=== PATIENT | female | born 1995 | race Caucasian/White ===

== ENCOUNTER 2020-09-08 16:40 | Emergency (ER) | payer MEDICAID ==
[~2020-09-08] VITALS: Ht 167.6 cm; Wt 63.6 kg
[~2020-09-08 16:40] MED LIST: CYCL-1 PO; ONDA4TAB6 PO
[2020-09-08 16:49] VITALS: BP 126/79
[2020-09-08] MEDS ORDERED: IBUP-1984 PO (18:03)
[2020-09-08] MEDS ORDERED: AMOX-117 PO (18:03)
[2020-09-08] MEDS ORDERED: HYDROcodone/acetaminophen 10/325mg tab PO ONE (18:30)
== END 2020-09-08 18:32 | disposition home or self-care (01) ==
LOC: ER 16:40
DX: K04.7 Periapical abscess without sinus (principal); G43.909 Migraine, unspecified, not intractable, without status migrainosus; K21.9 Gastro-esophageal reflux disease without esophagitis; F12.90 Cannabis use, unspecified, uncomplicated; Z72.89 Other problems related to lifestyle; Z88.5 Allergy status to narcotic agent; Z79.2 Long term (current) use of antibiotics; Z79.899 Other long term (current) drug therapy
CPT/HCPCS: 99283

== ENCOUNTER 2020-10-23 11:05 | Emergency (ER) | payer MEDICAID ==
[~2020-10-23] VITALS: Ht 167.6 cm; Wt 64.0 kg
[2020-10-23 11:17] VITALS: BP 115/61
[2020-10-23 11:43] LABS: BASOPHILS % (AUTO) 0.5 % (0-1); EOSINOPHILS % (AUTO) 0.3 % (0-6); HEMATOCRIT 41.8 % (35.0-45.0); HEMOGLOBIN 14.2 g/dl (12.0-16.0); LYMPHOCYTES # (AUTO) 1.3 X10'3 (1.1-4.8); LYMPHOCYTES % (AUTO) 14.7 % (21-51); MEAN CORPUSCULAR HEMOGLOBIN 31.1 PG (27.0-31.0); MEAN CORPUSCULAR VOLUME 91.3 FL (78-98); MEAN PLATELET VOLUME 7.7 FL (7.4-10.4); MONOCYTES # (AUTO) 0.5 X10'3 (0-0.9); MONOCYTES % (AUTO) 5.4 % (2-12); NEUTROPHILS % (AUTO) 79.1 % (42-75); PLATELET COUNT 267 X10'3 (140-440); RED BLOOD COUNT 4.57 X10'6 (4.20-5.60); RED CELL DISTRIBUTION WIDTH 12.7 % (11.5-14.5); WHITE BLOOD COUNT 8.9 X10'3 (4.5-11.0)
[2020-10-23 12:01] LABS: URINE HCG NEGATIVE (NEG)
[2020-10-23 12:02] LABS: ALANINE AMINOTRANSFERASE 25 U/L (12-78); ALBUMIN 4.1 G/DL (3.4-5.0); ALBUMIN/GLOBULIN RATIO 1.2 (1.1-1.5); ALKALINE PHOSPHATASE 58 IU/L (46-116); ANION GAP 5 (8-16); ASPARTATE AMINO TRANSFERASE 13 U/L (10-37); BILIRUBIN,TOTAL 0.7 MG/DL (0.1-1.0); BLOOD UREA NITROGEN 14 MG/DL (7-18); BUN/CREATININE RATIO 16.3 (6.6-38.0); CALCIUM 8.7 MG/DL (8.5-10.1); CHLORIDE 103 MMOL/L (99-107); CREATININE 0.86 MG/DL (0.40-0.90); GLUCOSE 129 MG/DL (70-104); POTASSIUM 3.8 MMOL/L (3.5-5.1); SODIUM 137 MMOL/L (135-145); TOTAL PROTEIN 7.4 G/DL (6.4-8.2); eGFR 80 ML/MIN
[2020-10-23 12:07] LABS: COLOR,URINE YELLOW (Yellow); GLUCOSE, URINE NEGATIVE (Neg); KETONES,URINE NEGATIVE (Neg); LEUKOCYTE ESTERASE ,URINE NEGATIVE (Neg); NITRITES, URINE NEGATIVE (Neg); OCCULT BLOOD,URINE NEGATIVE (Neg); PROTEIN,URINE NEGATIVE (Neg); UROBILINOGEN,URINE 0.2 E.U/dL (0.2-1.0)
[2020-10-23 12:19] LABS: UA COLLECTION TYPE CLN CATCH MIDSTREAM
[2020-10-23 12:20] LABS: CLARITY,URINE CLEAR (Clear)
== END 2020-10-23 12:27 | disposition home or self-care (01) ==
LOC: ER 11:05
DX: S50.12XA Contusion of left forearm, initial encounter (principal); S50.11XA Contusion of right forearm, initial encounter; S80.12XA Contusion of left lower leg, initial encounter; S80.11XA Contusion of right lower leg, initial encounter; G43.909 Migraine, unspecified, not intractable, without status migrainosus; K21.9 Gastro-esophageal reflux disease without esophagitis; F12.90 Cannabis use, unspecified, uncomplicated; Z72.89 Other problems related to lifestyle; Z88.5 Allergy status to narcotic agent; Z79.899 Other long term (current) drug therapy; X58.XXXA Exposure to other specified factors, initial encounter; Y93.89 Activity, other specified; Y92.89 Other specified places as the place of occurrence of the external cause; Y99.8 Other external cause status
CPT/HCPCS: 36415; 80053; 81003; 81025; 85025; 85610; 99283

== ENCOUNTER 2023-05-08 20:21 | Emergency (ER) | payer MEDICAID ==
[~2023-05-08] VITALS: Ht 167.6 cm; Wt 63.6 kg
[2023-05-08 21:08] LABS: BASOPHILS # (AUTO) 0.1 X10'3 (0-0.2); BASOPHILS % (AUTO) 0.6 % (0-1); EOSINOPHILS # (AUTO) 0.1 X10'3 (0-0.9); EOSINOPHILS % (AUTO) 0.9 % (0-6); HEMATOCRIT 39.7 % (35.0-45.0); HEMOGLOBIN 13.1 g/dl (12.0-16.0); LYMPHOCYTES # (AUTO) 1.2 X10'3 (1.1-4.8); LYMPHOCYTES % (AUTO) 11.5 % (21-51); MEAN CORPUSCULAR HEMOGLOBIN 28.5 PG (27.0-31.0); MEAN CORPUSCULAR HGB CONC 33.1 g/dL (33.0-36.5); MEAN CORPUSCULAR VOLUME 85.9 FL (78-98); MEAN PLATELET VOLUME 7.9 FL (7.4-10.4); MONOCYTES % (AUTO) 8.9 % (2-12); NEUTROPHILS # (AUTO) 8.5 X10'3 (1.8-7.7); NEUTROPHILS % (AUTO) 78.1 % (42-75); PLATELET COUNT 393 X10'3 (140-440); RED BLOOD COUNT 4.62 X10'6 (4.20-5.60); RED CELL DISTRIBUTION WIDTH 13.6 % (11.5-14.5); WHITE BLOOD COUNT 10.8 X10'3 (4.5-11.0)
[2023-05-08 21:23] LABS: ALANINE AMINOTRANSFERASE 22 U/L (12-78); ALBUMIN 3.5 G/DL (3.4-5.0); ALKALINE PHOSPHATASE 75 IU/L (46-116); ANION GAP 11 (8-16); ASPARTATE AMINO TRANSFERASE 12 U/L (10-37); BILIRUBIN,TOTAL 0.4 MG/DL (0.1-1.0); BLOOD UREA NITROGEN 8 MG/DL (7-18); BUN/CREATININE RATIO 8.7 (10.0-20.0); CALCIUM 8.9 MG/DL (8.5-10.1); CHLORIDE 103 MMOL/L (99-107); CREATININE 0.92 MG/DL (0.40-0.90); GLUCOSE 108 MG/DL (70-104); POTASSIUM 3.3 MMOL/L (3.5-5.1); SODIUM 141 MMOL/L (135-145); TOTAL CARBON DIOXIDE 26.6 MMOL/L (24-32); TOTAL PROTEIN 7.1 G/DL (6.4-8.2); eGFR 72 ML/MIN
[2023-05-08 21:49] LABS: CLARITY,URINE SLIGHTLY CLOUDY (Clear); GLUCOSE, URINE NEGATIVE (Neg); KETONES,URINE NEGATIVE (Neg); LEUKOCYTE ESTERASE ,URINE SMALL (Neg); NITRITES, URINE NEGATIVE (Neg); OCCULT BLOOD,URINE MODERATE (Neg); PROTEIN,URINE TRACE mg/dl (Neg)
[2023-05-08 22:11] LABS: COLOR,URINE DARK YELLOW (Yellow); UA COLLECTION TYPE CLN CATCH MIDSTREAM
[2023-05-08 22:18] LABS: BACTERIA,URINE 3+ /HPF (Neg); MUCUS STRANDS FEW /LPF (Neg); RBC,URINE 0-2 /HPF (0-2); SQUAMOUS EPITHELIAL CELL,UR MANY /LPF (FEW)
[2023-05-08] MEDS ORDERED: CefTRIAXone 2gm/D5W 50ml BAG 50 ML IV ONE (22:35)
[2023-05-08] MEDS ORDERED: CEPH-585 PO (23:04)
[2023-05-08 23:50] VITALS: BP 119/61
== END 2023-05-08 23:51 | disposition home or self-care (01) ==
LOC: ER 20:21
DX: L52 Erythema nodosum (principal); G43.909 Migraine, unspecified, not intractable, without status migrainosus; F12.90 Cannabis use, unspecified, uncomplicated; Z87.19 Personal history of other diseases of the digestive system; Z87.891 Personal history of nicotine dependence; Z72.89 Other problems related to lifestyle; Z88.5 Allergy status to narcotic agent; Z79.2 Long term (current) use of antibiotics; Z79.899 Other long term (current) drug therapy
CPT/HCPCS: 71045; 80053; 81001; 83605; 84145; 85025; 87040; 96365; 99284; J0696

== ENCOUNTER → 2023-10-27 | Emergency (ER) | payer MEDICAID ==
[~2023-10-27] VITALS: Ht 167.6 cm; Wt 98.6 kg
[~2023-10-27] MED LIST changes: +CEPH-585 PO; +NAPR-56 PO; +ONDA4TAB12 PO; +ketorolac trometh inj. 60 MG/2 ML VIAL IM ONE; +metoclopramide 5 mg/ml inj IM ONE
[2023-10-27 08:26] VITALS: BP 123/75; PULSE 82; TEMP 98; O2SAT 98
[2023-10-27 09:35] VITALS: RESP 20
== END | disposition home or self-care (01) ==
LOC: ER 08:10
DX: B34.9 Viral infection, unspecified (principal); U09.9 Post COVID-19 condition, unspecified
CPT/HCPCS: 96372; 99284; J1885; J2765

== ENCOUNTER 2025-07-21 16:29 | Emergency (ER) | payer MEDICAID ==
[~2025-07-21] VITALS: Ht 170.2 cm; Wt 73.9 kg
[~2025-07-21 16:29] MED LIST changes: -CEPH-585 PO; -NAPR-56 PO; +ONDA-243 PO; -ONDA4TAB12 PO; -ketorolac trometh inj. 60 MG/2 ML VIAL IM ONE; -metoclopramide 5 mg/ml inj IM ONE
[2025-07-21 16:36] VITALS: TEMP 98.9
[2025-07-21 16:58] LABS: MEAN PLATELET VOLUME 7.6 FL (7.4-10.4); RED CELL DISTRIBUTION WIDTH 12.8 % (11.5-14.5)
[2025-07-21 17:09] LABS: CREATININE 0.72 MG/DL (0.40-0.90); TOTAL CARBON DIOXIDE 29.1 MMOL/L (24-32); eCRCL 110 ML/MIN; eGFR > 90 ML/MIN
[2025-07-21 19:55] LABS: LEUKOCYTE ESTERASE ,URINE NEGATIVE (Neg); NITRITES, URINE NEGATIVE (Neg); OCCULT BLOOD,URINE NEGATIVE (Neg); URINE HCG NEGATIVE (NEG)
[2025-07-21 19:56] LABS: UA COLLECTION TYPE CLN CATCH MIDSTREAM
--- NOTE | 2025-07-21 21:02 | Physician Documentation ---
History of Present Illness General Chief Complaint: Bloody Stools Stated Complaint: BLOOD IN STOOL/ABD PAIN Time Seen by MD: 21:02 Primary Medical Doctor: marbella barr History of Present Illness Initial Comments Patient is a 30-year-old female who states she has had about a week's worth of bright red blood with stools. Patient states she has been using a hemorrhoid cream with no relief. Patient states she has pain when she has a bowel movement. She has also noted bright red blood coating the bowel movements. Patient denies any history of colitis. The patient denies any fevers chills nausea or vomiting. Patient states her symptoms are moderate and persistent. Medication Reconciliation Allergies: Coded Allergies: morphine (Verified Allergy, Unknown, 10/27/23) Scheduled Cyclobenzaprine* (Cyclobenzaprine*), 1 TAB PO TID Hydrocortisone Acetate (Anusol-Hc), 1 SUPP RC BID Scheduled PRN ONDANSETRON ODT 4mg tablet (Ondansetron Odt), 1 TAB PO Q6H PRN PRN for nausea/vomiting Ondansetron Hcl (Zofran), 1 TABLET PO Q8H PRN for nausea/vomiting, (Reported) Past Medical History Past Medical History: Headache, Migraine, Gastritis, GERD Past Surgical History: no surgical history Smoking: Quit greater than 1 year Alcohol Use: Occasionally Drug Use: marijuana Lives with: S/O Lives In: Home Occupation: employed Review of Systems All Other Systems at this time: Reviewed and Negative Physical Exam Physical Exam Vital Signs: Temperature: 98.9, Source: Temporal, Heart Rate: 63, Respiratory Rate: 16, BP: 133/59, Pulse Oximetry: 99, Weight: 73.900 Oxygen Flow Rate: 0 Physical Exam VITALS: Reviewed and as above. GENERAL: Alert, no apparent distress. HEENT: Normocephalic, atraumatic, PERRL, EOMI, dry mucosa, no erythema RESPIRATORY: Lungs clear, normal breath sounds, no respiratory distress. CHEST: No accessory muscle use, no retractions CV: Regular rate, rhythm, no edema, no murmur, No: JVD GI: Soft, slight diffuse lower abdominal tenderness no peritoneal signs bowels sounds present, no rebound, guarding, or rigidity rectal exam was no obvious hernias there was no stool in the vault there were no masses detected in the rectal vault there was no blood on my finger after the rectal exam although there was also no stool. BACK: No CVA tenderness, or swelling MUSCULOSKELETAL: No deformities, no edema SKIN: Warm and dry, no rash NEURO: Oriented x4, No motor or sensory deficit PSYCH: Normal mood and affect, no agitation Progress Results/Orders Results/Orders Orders - AILYN NEGRETE MD Ct Abdomen Pelvis (07/21/25 21:25) Completed Orders - AILYN NEGRETE MD Ct Abdomen Pelvis (07/21/25 21:25) Iohexol 300mg/Ml 100ml Inj. (Omnipaque-3 (07/21/25 21:14) Vital Signs 07/21/25 07/21/25 07/21/25 07/21/25 16:36 19:40 21:48 23:03 Temp 98.9 Pulse 82 63 76 Resp 18 16 17 16 B/P (MAP) 148/94 133/59 (83) 110/62 Pulse Ox 99 99 98 O2 Flow Rate 0 0 Laboratory Tests Test 07/21/25 16:45 07/21/25 19:20 White Blood Count 8.2 Red Blood Count 4.69 Hemoglobin 14.3 Hematocrit 43.1 Mean Corpuscular Volume 92.0 Mean Corpuscular Hemoglobin 30.5 Mean Corpuscular Hemoglobin Concent 33.2 Red Cell Distribution Width 12.8 Platelet Count 304 Mean Platelet Volume 7.6 Neutrophils (%) (Auto) 67.4 Lymphocytes (%) (Auto) 23.7 Monocytes (%) (Auto) 7.3 Eosinophils (%) (Auto) 1.2 Basophils (%) (Auto) 0.4 Neutrophils # (Auto) 5.5 Lymphocytes # (Auto) 1.9 Monocytes # (Auto) 0.6 Eosinophils # (Auto) 0.1 Basophils # (Auto) 0.0 CBC Comment Sodium Level 141 Potassium Level 3.9 Chloride Level 106 Carbon Dioxide Level 29.1 Anion Gap 6 L Blood Urea Nitrogen 14 Creatinine 0.72 Estimated GFR/1.73 m2 > 90 BUN/Creatinine Ratio 19.4 Glucose Level 117 H Calcium Level 9.0 Total Bilirubin 0.6 Aspartate Amino Transf (AST/SGOT) 13 Alanine Aminotransferase (ALT/SGPT) 24 Alkaline Phosphatase 69 Total Protein 7.7 Albumin 4.1 Globulin 3.6 Albumin/Globulin Ratio 1.1 Lipase 27 Chemistry Comments Urine Specimen Description Cln catch midstream Urine Color Yellow Urine Clarity Clear Urine pH 6.0 Urine Specific Neb[place] <=1.005 Urine Protein Negative Urine Glucose (UA) Negative Urine Ketones Trace H Urine Occult Blood Negative Urine Nitrite Negative Urine Bilirubin Negative Urine Urobilinogen 0.2 Urine Leukocyte Esterase Negative Urine Culture Indicated Not ind Volume Urine Centrifuged 10 ml Urine HCG, Qualitative Negative Urine Comment EKG/XRAY/CT/US/VASC/MRI CT : Impression Patient: MOSES ROCHE Medical Record: [id number] [facility] : 1995, Age: 30 Sex: Female Location: ER Patient Status: REG ER Service Date/Time: 07/21/252124 Ordering Physician: AILYN NEGRETE MD Exam: CT ABDOMEN PELVIS Exam: CT CT ABDOMEN PELVIS W/ IV CONTRAST History: abdominal pain and bloody stools COMPARISON: None Technique: Multidetector spiral CT of the abdomen and pelvis was performed from lung bases to pubic symphysis. Intravenous contrast was administered during this examination. Portal venous imaging was obtained. Axial, coronal and sagittal multiplanar reformats were performed by the technologist on a separate workstation. Radiation Dose : 1. Abdomen/Pelvis: CTDIvol 15.1 mGy, DLP 693.5 mGy*cm. CONTRAST: Type of contrast: Omniscan 300 Contrast injected: 100 ml Findings: Lung Bases: No acute or significant lung base finding. Normal heart size. No pleural or pericardial effusion. Liver: The liver is normal in size. No focal lesions. Normal hepatic vascular enhancement. Gallbladder and Biliary Tree: Unremarkable Spleen: Unremarkable Pancreas: The pancreas is normal in appearance without focal lesions or abnormal enhancement. Adrenal Glands: Unremarkable Kidneys: No hydronephrosis. Bladder: Unremarkable Bowel: The stomach is grossly normal in appearance. Small bowel and colon are normal in caliber and distribution. The appendix is not visualized; however, no secondary findings of acute appendicitis identified. Ascites: Absent Lymphadenopathy: No mesenteric, retroperitoneal or periportal lymphadenopathy. Abdominal Wall and Mesentery: Unremarkable. Vasculature: The visualized abdominal aorta is normal in size and caliber. Abdominal and pelvic vessels demonstrate normal enhancement. Pelvic Organs: Unremarkable. Intrauterine device. Musculoskeletal: No aggressive focal bony lesions, acute fractures or dislocation. IMPRESSION: 1. No acute abdominal or pelvic finding. Radiation optimization: All CT scans at this facility use at least one of these dose optimization techniques: automated exposure control mA and/or kV adjustment per patient size (includes targeted exams where dose is matched to clinical indication) or iterative reconstruction. Electronically Signed by:RICHI VILLALTA MD Date & Time: 07/21/252144 Dictated by: RICHI VILLALTA MD Dictation date and time: 07/21/252144 Primary Care Provider: NO PRIMARY CARE PROVIDER cc: AILYN NEGRETE MD ~ Medical Decision Making Findings And would rectal bleeding there were no external hemorrhoids visualized I did not feel any masses or internal hemorrhoids obvious on her exam she did get a CT with IV contrast to evaluate for any evidence of colitis there is none her labs were reassuring she is nontoxic she has a benign abdominal exam. Her labs were reviewed prior hospitalizations were reviewed her pulse oximetry was interpreted as normal and adequate the patient will be discharged with a an you saw prescription and she has been advised to follow up as an outpatient. Departure Disposition: HOME / SELF CARE / HOMELESS Impression: Primary Impression: Rectal bleeding Discharge Instructions: Bloody Stools Additional Instructions: Follow up with your healthcare provider. Return for worsening of your symptoms. Referrals: NO PRIMARY CARE PROVIDER (PCP) Prescriptions Hydrocortisone Acetate (Anusol-Hc) 25 Mg Supp.rect 1 SUPP RC BID, #14 SUPP 1 Refill may sub any other hemmorhoid supposity or cream on formulary Prov: AILYN NEGRETE MD 07/21/25 Signature Scribe Signature: no scribe Attestation: The note accurately reflects work and decisions made by me.Ailyn Negrete MD 07/22/25 03:35 AILYN NEGRETE MD Jul 21, 2025 21:02
[2025-07-21] MEDS ORDERED: iohexol 300mg/ml 100ml inj. ONE (21:14)
[2025-07-21] MEDS ORDERED: HYDR25SU32 RC (21:47)
--- NOTE | 2025-07-21 21:48 | RADIOLOGY REPORT ---
Exam: CT CT ABDOMEN PELVIS W/ IV CONTRAST History: abdominal pain and bloody stools COMPARISON: None Technique: Multidetector spiral CT of the abdomen and pelvis was performed from lung bases to pubic symphysis. Intravenous contrast was administered during this examination. Portal venous imaging was obtained. Axial, coronal and sagittal multiplanar reformats were performed by the technologist on a separate workstation. Radiation Dose : 1. Abdomen/Pelvis: CTDIvol 15.1 mGy, DLP 693.5 mGy*cm. CONTRAST: Type of contrast: Omniscan 300 Contrast injected: 100 ml Findings: Lung Bases: No acute or significant lung base finding. Normal heart size. No pleural or pericardial effusion. Liver: The liver is normal in size. No focal lesions. Normal hepatic vascular enhancement. Gallbladder and Biliary Tree: Unremarkable Spleen: Unremarkable Pancreas: The pancreas is normal in appearance without focal lesions or abnormal enhancement. Adrenal Glands: Unremarkable Kidneys: No hydronephrosis. Bladder: Unremarkable Bowel: The stomach is grossly normal in appearance. Small bowel and colon are normal in caliber and distribution. The appendix is not visualized; however, no secondary findings of acute appendicitis identified. Ascites: Absent Lymphadenopathy: No mesenteric, retroperitoneal or periportal lymphadenopathy. Abdominal Wall and Mesentery: Unremarkable. Vasculature: The visualized abdominal aorta is normal in size and caliber. Abdominal and pelvic vessels demonstrate normal enhancement. Pelvic Organs: Unremarkable. Intrauterine device. Musculoskeletal: No aggressive focal bony lesions, acute fractures or dislocation. IMPRESSION: 1. No acute abdominal or pelvic finding. Radiation optimization: All CT scans at this facility use at least one of these dose optimization techniques: automated exposure control mA and/or kV adjustment per patient size (includes targeted exams where dose is matched to clinical indication) or iterative reconstruction.
[2025-07-21 23:03] VITALS: BP 110/62; PULSE 76; RESP 16; O2SAT 98
== END 2025-07-21 23:05 | disposition home or self-care (01) ==
LOC: ER 16:29
DX: K62.5 Hemorrhage of anus and rectum (principal); K21.9 Gastro-esophageal reflux disease without esophagitis; G43.909 Migraine, unspecified, not intractable, without status migrainosus; F12.90 Cannabis use, unspecified, uncomplicated; Z87.19 Personal history of other diseases of the digestive system; Z88.5 Allergy status to narcotic agent; Z79.899 Other long term (current) drug therapy; Z72.89 Other problems related to lifestyle
CPT/HCPCS: 36415; 74177; 80053; 81003; 81025; 83690; 85025; 99285; Q9967

== ENCOUNTER 2025-10-30 07:35 | Day surgery (SDC) | payer MEDICAID ==
[~2025-10-30] VITALS: Ht 167.6 cm; Wt 72.5 kg
[~2025-10-30 07:35] MED LIST changes: -CYCL-1 PO; +NO HOME MEDS; -ONDA-243 PO; -ONDA4TAB6 PO; +ringers solution, lacted 1,000 ML IV SCH
[2025-10-30 08:00] VITALS: BP 115/61; PULSE 78; RESP 16; TEMP 97.9; O2SAT 100
[2025-10-30] MEDS ORDERED: simethicone 40mg/0.6ml oral drops 15ml ONE (08:00)
[2025-10-30] MEDS ORDERED: MIDAZolam 1mg/ml 10ml vial ONE (10:09)
[2025-10-30] MEDS ORDERED: fentaNYL/PF 50MCG/1 ML 2ML syringe ONE (10:10)
[2025-10-30] MEDS ORDERED: propofol inj 20 ML IV ONE ×2 (10:10→10:34)
[2025-10-30] MEDS ORDERED: LIDOcaine 1%/PF 5ML 10 MG/ML VIAL ONE (10:10)
[2025-10-30 10:55] VITALS: BP 96/51; PULSE 82; RESP 16; O2SAT 100
[2025-10-30 11:10] VITALS: BP 96/59; PULSE 58; RESP 21; O2SAT 100
[2025-10-30 11:20] VITALS: BP 94/72; PULSE 65; RESP 19; O2SAT 100
[2025-10-30 11:30] VITALS: BP 92/63; PULSE 70; RESP 13; O2SAT 100
== END 2025-10-30 11:35 | disposition home or self-care (01) ==
LOC: PRE-OP 07:35
PROVIDERS: ATTEND Internal Medicine Gastroenterology
DX: K92.1 Melena (principal); D12.5 Benign neoplasm of sigmoid colon; D12.1 Benign neoplasm of appendix; K63.5 Polyp of colon; Z87.891 Personal history of nicotine dependence; K21.9 Gastro-esophageal reflux disease without esophagitis; K29.70 Gastritis, unspecified, without bleeding; G43.909 Migraine, unspecified, not intractable, without status migrainosus; Z88.5 Allergy status to narcotic agent
CPT/HCPCS: 45385; J2250; J2704; J3010; J3490; J7120; Z7512; A4615

== ENCOUNTER 2025-10-30 20:34 | Emergency (ER) | payer MEDICAID ==
[~2025-10-30] VITALS: Ht 167.6 cm; Wt 74.7 kg
[~2025-10-30 20:34] MED LIST changes: -ringers solution, lacted 1,000 ML IV SCH
[2025-10-30 21:20] LABS: MEAN PLATELET VOLUME 7.6 FL (7.4-10.4); RED CELL DISTRIBUTION WIDTH 13.0 % (11.5-14.5)
[2025-10-30 21:34] LABS: CREATININE 0.89 MG/DL (0.40-0.90); TOTAL CARBON DIOXIDE 24.6 MMOL/L (24-32); eCRCL 86 ML/MIN; eGFR 74 ML/MIN
--- NOTE | 2025-10-30 22:30 | Physician Documentation ---
History of Present Illness Chief Complaint: Rectal Pain Stated Complaint: ABD/RECTAL PAIN Time Seen by MD: 22:20 Primary Medical Doctor: marbella barr HPI 30-year-old female presenting with severe diffuse abdominal pain which started about 3-4 hours ago and has been gradually worsening. Patient states the pain is mainly in the lower part of her abdomen but radiates to the rest. Addit ionally she states that she has had two bloody bowel movements as well. She has also been very nauseated and has vomited on a couple of occasions. The patient earlier had a colonoscopy done today and went home and initially felt fine however few hours later the pain developed. She states that they removed several polyps from her colon. Medication Reconciliation Allergies: Coded Allergies: morphine (Verified Allergy, Severe, ANAPHYLAXIS, 10/27/25) Miscellaneous Medications Home Med List (No Home Medications), (Reported) Discontinued Medications Cyclobenzaprine* (Cyclobenzaprine*), 1 TAB PO TID Discontinued Reason: Other Hydrocortisone Acetate (Anusol-Hc), 1 SUPP RC BID Discontinued Reason: Other ONDANSETRON ODT 4mg tablet (Ondansetron Odt), 1 TAB PO Q6H PRN PRN for nausea/vomiting Discontinued Reason: Other Ondansetron Hcl (Zofran), 1 TABLET PO Q8H PRN for nausea/vomiting, (Reported) Discontinued Reason: Other Past Medical History Past Medical History: Headache, Migraine, Gastritis, GERD Past Surgical History: no surgical history Alcohol Use: Occasionally Drug Use: marijuana Lives with: S/O Lives In: Home Occupation: employed Review of Systems All Other Systems at this time: Reviewed and Negative Physical Exam Vital Signs: Temperature: 98.7, Source: Temporal, Heart Rate: 113, Respiratory Rate: 18, BP: 142/78, Pulse Oximetry: 99, Weight: 74.700 Oxygen Flow Rate: 0 Physical Exam I have reviewed the triage vitals. CONST: Well developed and well nourished. In significant distress due to pain. HENT: Head Atraumatic EYES: Pupils are equal, round and reactive to light. Normal conjunctiva NECK: Normal range of motion. Supple. CARDIO: Normal rate and regular rhythm. No murmurs, rubs, or gallops. S1, S2. PULM/CHEST: No respiratory distress. Lungs clear to auscultation. No wheeze ABD: Soft, diffusely tender to palpation mostly in the lower quadrants. Nondistended. Bowel sounds normal. : Exam deferred MSK: No edema. No deformity. NEURO: Alert and oriented to person, place and time. Moving all extremities SKIN: Warm and dry. PSYCH: Normal mood and affect. Good eye contact. Progress Results/Orders Results/Orders Orders - NANTETE GOMEZ MD Urinalysis, Cult If Indicated (10/30/25 21:) Hcg, Ur Ql (10/30/25 21:) Pt Inr (10/30/25 22:24) PTT (10/30/25 22:24) Culture Blood (10/30/25 22:24) Lacticsepsis (10/30/25 22:24) Fentanyl/Pf (Fentanyl 0.05 Mg/Ml Syringe (10/30/25 22:25) Normal Saline 1000ml (0.9% Sodium Chlori (10/30/25 22:25) Ct Abdomen Pelvis (10/30/25 22:24) Ondansetron Inj. (Zofran 4mg/2ml Vial) (10/30/25 22:30) Completed Orders - NANETTE GOMEZ MD Cbc/Diff (10/30/25 21:01) Lipase (10/30/25 21:01) CMP (10/30/25 21:01) Vital Signs 10/30/25 20:58 Temp 98.7 Pulse 113 Resp 18 B/P (MAP) 142/78 Pulse Ox 99 O2 Flow Rate 0 Laboratory Tests Test 10/30/25 21:11 White Blood Count 18.3 H Red Blood Count 4.56 Hemoglobin 13.8 Hematocrit 41.2 Mean Corpuscular Volume 90.4 Mean Corpuscular Hemoglobin 30.3 Mean Corpuscular Hemoglobin Concent 33.6 Red Cell Distribution Width 13.0 Platelet Count 234 Mean Platelet Volume 7.6 Neutrophils (%) (Auto) 92.4 H Lymphocytes (%) (Auto) 3.4 L Monocytes (%) (Auto) 3.9 Eosinophils (%) (Auto) 0.1 Basophils (%) (Auto) 0.2 Neutrophils # (Auto) 16.9 H Lymphocytes # (Auto) 0.6 L Monocytes # (Auto) 0.7 Eosinophils # (Auto) 0.0 Basophils # (Auto) 0.0 CBC Comment Sodium Level 136 Potassium Level 3.5 Chloride Level 104 Carbon Dioxide Level 24.6 Anion Gap 7 L Blood Urea Nitrogen 8 Creatinine 0.89 Estimated GFR/1.73 m2 74 BUN/Creatinine Ratio 9.0 L Glucose Level 176 H Calcium Level 8.6 Total Bilirubin 1.6 H Aspartate Amino Transf (AST/SGOT) 14 Alanine Aminotransferase (ALT/SGPT) 25 Alkaline Phosphatase 59 Total Protein 7.4 Albumin 4.0 Globulin 3.4 Albumin/Globulin Ratio 1.2 Lipase 18 Chemistry Comments EKG/XRAY/CT/US/VASC/MRI EKG : Additional Comment EKG as interpreted by ED MD showing normal sinus rhythm with a rate of 76 beats per minute, no ischemia, normal axis Chest X-Ray : Additional Comments CHEST RADIOGRAPH INDICATION: abd pain TECHNIQUE: Single frontal view of the chest was obtained COMPARISON: CHEST,SINGLE VIEW on DOS: 05/08/23 FINDINGS: Lungs and pleural spaces are clear. Cardiac silhouette and nathaniel are within normal limits. Bones and soft tissues demonstrate no significant abnormality. IMPRESSION: No acute disease. : Impression EXAM: CT CT ABDOMEN PELVIS W/ IV CONTRAST History: severe abd pain s/p colonoscopy today COMPARISON: CT CT ABDOMEN PELVIS W/ IV CONTRAST on DOS: 07/21/25 TECHNIQUE: Multidetector spiral CT of the abdomen and pelvis was performed from lung bases to pubic symphysis. Intravenous contrast was administered during this examination. Portal venous imaging was obtained. Axial, coronal and sagittal multiplanar reformats were performed by the technologist on a separate workstation. Radiation Dose : 1. Abdomen/Pelvis: CTDIvol 25.33 mGy, DLP 1123.54 mGy*cm. CONTRAST: Type of contrast: Omnipaque 300 Contrast injected: 100 ml FINDINGS: Lung Bases: No acute or significant lung base finding. Normal heart size. No pleural or pericardial effusion. Liver: The liver is normal in size. No focal lesions. Normal hepatic vascular enhancement. Gallbladder and Biliary Tree: Unremarkable Spleen: Unremarkable Pancreas: The pancreas is normal in appearance without focal lesions or abnormal enhancement. Adrenal Glands: Unremarkable Kidneys: No hydronephrosis. Bladder: Unremarkable Bowel: The stomach is grossly normal in appearance. Small bowel and colon are normal in caliber and distribution. The appendix is not visualized; however, no secondary findings of acute appendicitis identified. Ascites: Trace pelvic free fluid. Lymphadenopathy: No mesenteric, retroperitoneal or periportal lymphadenopathy. Abdominal Wall and Mesentery: Unremarkable. Vasculature: The visualized abdominal aorta is normal in size and caliber. Abdominal and pelvic vessels demonstrate normal enhancement. Pelvic Organs: IUD in-situ. Musculoskeletal: No aggressive focal bony lesions, acute fractures or dislocation. IMPRESSION: No acute abdominal or pelvic finding. Ultrasound : Impression INDICATION: ABDOMINAL PAIN TECHNIQUE: Multiple real-time grayscale transabdominal sonographic images along with color and duplex Doppler of the uterus and ovaries were obtained. COMPARISON: None FINDINGS: The uterus measures 8.0 x 4.3 x 5.0 cm. The endometrial stripe measures 1.0 cm. IUD in-situ. Right ovary measures 4.1 x 3.7 x 3.2 cm with normal Doppler color flow Left ovary measures 3.0 x 3.3 x 2.5 cm with normal Doppler color flow IMPRESSION: Grossly unremarkable pelvic ultrasound. Medical Decision Making Additional information obtaine: old records Findings - Differential Dx:Considerations: Appendicitis, Bowel obstruction, Constipation, Diverticular disease, Gastritis/PUD, Inflammatory BD, Urinary tract infection Additional Comments 30-year-old female presenting with abdominal pain likely secondary to post colonoscopy pain from the air/gas that was used during the procedure. Patient notes she presented in his significant pain. Abdomen was soft but it was tender. CT of the abdomen and pelvis was done with contrast which indicated no acute abnormalities and specifically no signs of any bowel perforation. Patient had an elevated WBC count of 18 however. Remainder of lab workup was unremarkable. I did also perform a pelvic ultrasound to rule out any pelvic pathology and this was also unremarkable. Patient was medicated with IV fentanyl and then IV Dilaudid which greatly improved her pain. IV Zofran was given for nausea which helped resolve the nausea. She was given IV fluids as well. A repeat CBC showed an improving WBC count of 15. I suspect the patient's pain was due to the gas used during the procedure. She is improved now after being medicated. There is no other abnormalities appreciated that would require any emergent intervention. I believe she is stable and safe to discharge home. She was educated on the findings. Patient was given a p.o. dose of Nelson as well for further pain control. Advised to continue with post colonoscopy care. Monitor for improvement and resolution of the pain. I advised her to return immediately to the emergency department should her symptoms worsen. Departure Disposition: HOME / SELF CARE / HOMELESS Impression: Primary Impression: Post-op pain Additional Impression: Abdominal pain Condition: Improved Discharge Instructions: Colonoscopy, Adult Referrals: NO PRIMARY CARE PROVIDER (PCP) Signature Scribe Signature: 1 Attestation: The note accurately reflects work and decisions made by me.Nanette Mcghee MD 11/02/25 17:07 NANETTE GOMEZ MD Oct 30, 2025 22:30
[2025-10-30] MEDS: ondansetron/PF 4mg/2ml inj IV ONE (22:39)
[2025-10-30] MEDS: fentaNYL/PF 50MCG/1 ML 2ML syringe IV ONE (22:43)
[2025-10-30] MEDS: normal saline 1000ml 1,000 ML IV ONE (22:44)
[2025-10-30] MEDS ORDERED: iohexol 300mg/ml 100ml inj. ONE (22:44)
--- NOTE | 2025-10-30 22:47 | ELECTROCARDIOGRAPH REPORT ---
[facility] Test Date: 2025-10-30 Test Time: 22:44:12 Pat Name: MOSES ROCHE Department: [facility]- Patient ID: [facility]-[id number] Room: Gender: F Beverage Server: : 1995 Requested By: MYRNA GOMEZ Order Number: [id number] Reading MD: Dr. Ananda Sánchez Measurements Intervals Rand Rate: 76 P: 70 IN: 122 QRS: 88 QRSD: 103 T: 81 QT: 375 QTc: 422 Interpretive Statements Sinus rhythm RSR' in V1 or V2, right VCD or RVH Nonspecific T abnrm, anterolateral leads Electronically Signed On 10-31-2025 7:35:[address] Ananda Sánchez Please click the below link to view image of tracing.
[2025-10-30 22:49] LABS: APTT 25 SECONDS (22-32); INR 1.0 INR
--- NOTE | 2025-10-30 23:09 | RADIOLOGY REPORT ---
CHEST RADIOGRAPH INDICATION: abd pain TECHNIQUE: Single frontal view of the chest was obtained COMPARISON: CHEST,SINGLE VIEW on DOS: 05/08/23 FINDINGS: Lungs and pleural spaces are clear. Cardiac silhouette and nathaniel are within normal limits. Bones and soft tissues demonstrate no significant abnormality. IMPRESSION: No acute disease.
--- NOTE | 2025-10-30 23:35 | RADIOLOGY REPORT ---
EXAM: CT CT ABDOMEN PELVIS W/ IV CONTRAST History: severe abd pain s/p colonoscopy today COMPARISON: CT CT ABDOMEN PELVIS W/ IV CONTRAST on DOS: 07/21/25 TECHNIQUE: Multidetector spiral CT of the abdomen and pelvis was performed from lung bases to pubic symphysis. Intravenous contrast was administered during this examination. Portal venous imaging was obtained. Axial, coronal and sagittal multiplanar reformats were performed by the technologist on a separate workstation. Radiation Dose : 1. Abdomen/Pelvis: CTDIvol 25.33 mGy, DLP 1123.54 mGy*cm. CONTRAST: Type of contrast: Omnipaque 300 Contrast injected: 100 ml FINDINGS: Lung Bases: No acute or significant lung base finding. Normal heart size. No pleural or pericardial effusion. Liver: The liver is normal in size. No focal lesions. Normal hepatic vascular enhancement. Gallbladder and Biliary Tree: Unremarkable Spleen: Unremarkable Pancreas: The pancreas is normal in appearance without focal lesions or abnormal enhancement. Adrenal Glands: Unremarkable Kidneys: No hydronephrosis. Bladder: Unremarkable Bowel: The stomach is grossly normal in appearance. Small bowel and colon are normal in caliber and distribution. The appendix is not visualized; however, no secondary findings of acute appendicitis identified. Ascites: Trace pelvic free fluid. Lymphadenopathy: No mesenteric, retroperitoneal or periportal lymphadenopathy. Abdominal Wall and Mesentery: Unremarkable. Vasculature: The visualized abdominal aorta is normal in size and caliber. Abdominal and pelvic vessels demonstrate normal enhancement. Pelvic Organs: IUD in-situ. Musculoskeletal: No aggressive focal bony lesions, acute fractures or dislocation. IMPRESSION: No acute abdominal or pelvic finding. Radiation optimization: All CT scans at this facility use at least one of these dose optimization techniques: automated exposure control mA and/or kV adjustment per patient size (includes targeted exams where dose is matched to clinical indication) or iterative reconstruction.
[2025-10-31] MEDS: CefTRIAXone/D5W-Rocephin 1gm 50 ML IV ONE (00:44)
[2025-10-31 01:10] LABS: LEUKOCYTE ESTERASE ,URINE NEGATIVE (Neg); OCCULT BLOOD,URINE NEGATIVE (Neg)
[2025-10-31 01:12] LABS: NITRITES, URINE NEGATIVE (Neg)
[2025-10-31 01:13] LABS: UA COLLECTION TYPE NON-SPECIFIED; URINE HCG NEGATIVE (NEG)
[2025-10-31 02:23] LABS: MEAN PLATELET VOLUME 8.1 FL (7.4-10.4); RED CELL DISTRIBUTION WIDTH 12.7 % (11.5-14.5)
--- NOTE | 2025-10-31 02:46 | RADIOLOGY REPORT ---
INDICATION: ABDOMINAL PAIN TECHNIQUE: Multiple real-time grayscale transabdominal sonographic images along with color and duplex Doppler of the uterus and ovaries were obtained. COMPARISON: None FINDINGS: The uterus measures 8.0 x 4.3 x 5.0 cm. The endometrial stripe measures 1.0 cm. IUD in-situ. Right ovary measures 4.1 x 3.7 x 3.2 cm with normal Doppler color flow Left ovary measures 3.0 x 3.3 x 2.5 cm with normal Doppler color flow IMPRESSION: Grossly unremarkable pelvic ultrasound.
[2025-10-31] MEDS: HYDROcodone/acetaminophen 5mg/325mg tablet PO ONE (03:14)
[2025-10-31 03:15] VITALS: BP 105/55; PULSE 87; RESP 19; TEMP 97.9; O2SAT 97
--- NOTE | 2025-10-31 16:32 | PATHOLOGY REPORT ---
[facility] [address] [place] [address] SURGICAL PATHOLOGY REPORT CaseNumber: [id number] Surgeon:Ramon Smith M.D. CLINICAL INFORMATION CLINICAL INFORMATION: Melena. 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 POLYPS, ASCENDING COLON, BIOPSIES X 2 MICROSCOPIC DESCRIPTION: Reviewed is a single H&E-stained slide showing sections and levels of polypoid fragments of colonic mucosa. There are areas associated with hyperplastic changes. No serrated, dysplastic, or neoplastic features are identified. B. POLYP, SIGMOID COLON, BIOPSY MICROSCOPIC DESCRIPTION: Reviewed are three H&E-stained slides showing sections of a polypoid portion of colonic mucosa involved by adenomatous changes measuring up to 2.0 cm. While there are areas of mild architectural complexity, no dysplastic or neoplastic features are identified. GROSS DESCRIPTION A. POLYPS, ASCENDING COLON, BIOPSIES X 2 GROSS DESCRIPTION: Received in a container of formalin labeled with the patient's name, number, and "ascending colon polyp" are 2 pieces of mccarthy tissue 0.4 x 0.2 x 0.1 and 0.9 x 0.7 x 0.2 cm. The larger specimen is sectioned. The specimen is entirely submitted as A1. The time at which the specimen was removed was 1027. The time at which the specimen was placed in formalin was 1028. B. POLYP, SIGMOID COLON, BIOPSY GROSS DESCRIPTION: Received in a container of formalin labeled with the patient's name, number, and "sigmoid colon polyp" is a 2 x 1.5 x 1.3 cm polypoid piece of mccarthy tissue. The specimen is sectioned. The specimen is entirely submitted as B1-B3. The time at which the specimen was removed was 1027. The time at which the specimen was placed in formalin was 1028. Electronically signed by: Richi Dominguez M.D. 10/31/2025 3:53:00 PM
== END 2025-10-31 03:33 | disposition home or self-care (01) ==
LOC: ER 20:34
DX: G89.18 Other acute postprocedural pain (principal); R10.84 Generalized abdominal pain; G43.909 Migraine, unspecified, not intractable, without status migrainosus; K21.9 Gastro-esophageal reflux disease without esophagitis; F12.90 Cannabis use, unspecified, uncomplicated; Z88.5 Allergy status to narcotic agent; Z87.19 Personal history of other diseases of the digestive system; Z98.890 Other specified postprocedural states; Z72.89 Other problems related to lifestyle
CPT/HCPCS: 36415; 71045; 74177; 76856; 80053; 81003; 81025; 83605; 83690; 85025; 85610; 85730; 87040; 93005; 93976; 96361; 96365; 96375; 99285; J0696; J1171; J2405; J3010; J7030; Q9967